=== PATIENT | female | born 1970 | race Caucasian/White ===

== ENCOUNTER 2017-01-29 13:56 | Outpatient (CLI) | payer BC ==
--- NOTE | 2017-01-29 16:45 | MMO ---
BILATERAL SCREENING MAMMOGRAM: Date: 01/29/17 COMPARISON: 01/28/16, 01/25/15, and 01/23/14. HISTORY: Screening mammography. FINDINGS: This patient's mammogram was interpreted with the assistance of computer-aided detection. Scattered fibroglandular densities are present. There is no dominant mass or architectural distortion. No concerning microcalcifications are noted. IMPRESSION: BIRADS 1: Negative Annual screening mammography recommended. POS: [facility]ONT[facility]
== END 2017-01-29 13:57 | disposition home or self-care (01) ==
LOC: MAMMO 13:56
PROVIDERS: ATTEND Obstetrics & Gynecology
DX: Z12.31 Encounter for screening mammogram for malignant neoplasm of breast (principal)
CPT/HCPCS: 77067; G0202

== ENCOUNTER 2018-01-21 13:21 | Outpatient (CLI) | payer BC ==
--- NOTE | 2018-01-21 15:36 | MMO ---
BILATERAL DIGITAL SCREENING MAMMOGRAMS: Date: 01/21/18 HISTORY: 47-year-old female presents for digital screening mammogram. COMPARISON: 01/29/17, 01/28/16, 01/25/15, 01/23/14, 01/10/13. FINDINGS: This patient's mammogram was interpreted with the assistance of computer-aided detection. Scattered areas of fibroglandular density are noted bilaterally. Stable Parenchymal density asymmetry in both breasts. Occasional typically benign calcification. IMPRESSION: BIRADS 2: Benign Finding(s) Continued annual follow-up mammogram. POS: MONT[facility]
== END 2018-01-21 13:22 | disposition home or self-care (01) ==
LOC: SCSMAMMO 13:21
PROVIDERS: ATTEND Obstetrics & Gynecology
DX: Z12.31 Encounter for screening mammogram for malignant neoplasm of breast (principal)
CPT/HCPCS: 77067

== ENCOUNTER 2019-01-27 12:18 | Outpatient (CLI) | payer BC ==
--- NOTE | 2019-01-27 14:05 | MMO ---
Bilateral MAMMO Bilat Screen [facility]. CLINICAL HISTORY: Patient is 48 years old and is seen for screening. The patient has no family history of breast cancer. The patient has no personal history of cancer. VIEWS: The views performed were: bilateral craniocaudal with tomosynthesis and bilateral mediolateral oblique with tomosynthesis. FILMS COMPARED: The present examination has been compared to prior imaging studies performed at [facility] on 01/25/2015, and at [facility] on 01/28/2016, 01/29/2017 and 01/21/2018. This study has been interpreted with the assistance of computer-aided detection. MAMMOGRAM FINDINGS: There are scattered fibroglandular densities. There are no suspicious masses, suspicious calcifications, or new areas of architectural distortion. IMPRESSION: THERE IS NO MAMMOGRAPHIC EVIDENCE OF MALIGNANCY. A ROUTINE FOLLOW-UP MAMMOGRAM IN 1 YEAR IS RECOMMENDED. THE RESULTS OF THIS EXAM WERE SENT TO THE PATIENT. ACR BI-RADS Category 1 - Negative MAMMOGRAPHY NOTE: 1. A negative mammogram report should not delay a biopsy if a dominant of clinically suspicious mass is present. 2. Approximately 10% to 15% of breast cancers are not detected by mammography. 3. Adenosis and dense breasts may obscure an underlying neoplasm. Reported by: ERNIE JAMES MD Electonically Signed: [id number]
== END 2019-01-27 12:19 | disposition home or self-care (01) ==
LOC: BICMAMMO 12:18
PROVIDERS: ATTEND Obstetrics & Gynecology
DX: Z12.31 Encounter for screening mammogram for malignant neoplasm of breast (principal)
CPT/HCPCS: 77063; 77067